=== PATIENT | male | born 1990 | race Two or more races ===

== ENCOUNTER 2020-10-12 11:24 | Emergency (ER) | payer MEDICAID ==
[~2020-10-12] VITALS: Ht 180.3 cm; Wt 70.0 kg
[2020-10-12] MEDS ORDERED: IBUPROFEN 400 MG TABLET PO ONE (12:30)
[2020-10-12] MEDS ORDERED: ONDANSETRON HCL 4 MG TABLET PO ONE (12:30)
[2020-10-12] MEDS ORDERED: ACETAMINOPHEN 500 MG TABLET PO ONE (12:30)
[2020-10-12 15:17] VITALS: BP 135/61
== END 2020-10-12 15:41 | disposition home or self-care (01) ==
LOC: EMS 11:42
DX: S10.93XA Contusion of unspecified part of neck, initial encounter (principal); V49.9XXA Car occupant (driver) (passenger) injured in unspecified traffic accident, initial encounter; Y93.89 Activity, other specified; Y92.89 Other specified places as the place of occurrence of the external cause; Y99.8 Other external cause status
CPT/HCPCS: 71101; 73080; 99284; Q0162